=== PATIENT | female | born 1975 | race Caucasian/White ===

== ENCOUNTER 2017-09-27 15:55 | Emergency (ER) | payer MEDICAID, OTHER ==
[2017-09-27 15:57] VITALS: BP 174/102; PULSE 84; RESP 18; TEMP 98.4; O2SAT 99
--- NOTE | 2017-09-27 16:17 | PD ---
HPI Chief Complaint: Musculoskeletal Complaint Time Seen by Provider: 16:16 Travel History International Travel<30 days: No Contact w/Intl Traveler<30days: No Traveled to known affect area: No History of Present Illness HPI Patient thinks she dislocated her jaw about 45 minutes ago. She had a big yawn on followed by a snapping feeling of her left side and dislocation. Patient says that she has popped her TMJ in the past but has been able to put it back again and again on her own. This time it did not go back in. She has her mouth persistently open with the jaw deviated to the right side [facility] Past Medical History Narrative Medical List of her past medical, surgical, social and family history is reviewed from the nursing note. Diminished Hearing: No Immunizations Current: Yes ?: Not LMP: 09/18/17 Past Surgical History Other Surgery: Yes (BREAST AUGMENTATION) Social History Alcohol Use: No Tobacco Use: No Substance Use: No Allergies-Medications (Allergen,Severity, Reaction): Coded Allergies: No Known Allergies (Unverified , 01/24/16) Comments No known drug allergies. Reported Meds & Prescriptions Reported Meds & Active Scripts Active No Active Prescriptions or Reported Medications Narrative Medication List of her home medications reviewed from the nursing note. Review of Systems Except as stated in HPI: all other systems reviewed are Neg HENT: Positive: Other Physical Exam Narrative GENERAL: Awake, alert, moderate distress SKIN: Focused skin assessment warm/dry. HEAD: Atraumatic. Normocephalic. EYES: Pupils equal and round. No scleral icterus. No injection or drainage. ENT: No nasal bleeding or discharge. Mucous membranes pink and moist. Mouth is persistently open with the jaw deviated to the right. Deformities felt in the right TMJ NECK: Trachea midline. No JVD. CARDIOVASCULAR: Regular rate and rhythm. No murmur appreciated. RESPIRATORY: No accessory muscle use. Clear to auscultation. Breath sounds equal bilaterally. GASTROINTESTINAL: Abdomen soft, non-tender, nondistended. Hepatic and splenic margins not palpable. MUSCULOSKELETAL: No obvious deformities. No clubbing. No cyanosis. No edema. NEUROLOGICAL: Awake and alert. No obvious cranial nerve deficits. Motor grossly within normal limits. Normal speech. PSYCHIATRIC: Appropriate mood and affect; insight and judgment normal. Data Data Last Documented VS Orders Orders Mandible, Complete (Min 4vws) (09/27/17 ) Midazolam Inj (Versed Inj) (09/27/17 16:30) Iv Access Insert/Monitor (09/27/17 16:32) Midazolam Inj (Versed Inj) (09/27/17 17:08) Midazolam Inj (Versed Inj) (09/27/17 17:30) Mandible, Ltd (Less Than 4vws) (09/27/17 ) Ed Discharge Order (09/27/17 17:49) [facility] Medical Decision Making Medical Screen Exam Complete: Yes Emergency Medical Condition: Yes Medical Record Reviewed: Yes Differential Diagnosis Jaw dislocation, mandibular fracture Narrative Course 4:33 PM awaiting for the x-ray. If there are no fractures I'll try to relocate the jaw with some versed. 5:49 PM the jaw was relocated with versed. Please refer to my procedure note. She tolerated it well. I'll be discharging her home. Procedures Procedure Narrative Jaw dislocation relocation: Patient was given IV Versed and this was done under light sedation. Gentle pressure was applied on the mandible with both thumbs placed on posterior area. Inferior and posterior pressure was applied. After some constant from pressure the jaw snap back into the TMJ and I could feel it. Patient was able to close her mouth. She tolerated the procedure well. EKG Prior to Arrival: No Diagnosis Primary Impression: Jaw dislocation Qualified Codes: S03.00XA - Dislocation of jaw, unspecified side, initial encounter Referrals: Primary Care Physician Additional Instructions: Soft diet or liquid diet for the next 24 hours. Return to the ER if the condition worsens or any other new concerns. Med/Other Pt SpecificInfo: No Change to Meds Scripts No Active Prescriptions or Reported Meds Disposition: 01 DISCHARGE HOME Condition: Stable Manohar Alicia MD Sep 27, 2017 16:17
[2017-09-27] MEDS ORDERED: MIDAZOLAM HCL 2 MG/2 ML VIAL IV PUSH ONE ×2 (16:30→17:30)
--- NOTE | 2017-09-27 16:57 | RADRPT ---
EXAM DATE/TIME: 09/27/2017 16:29 [facility] COMPARISON: No previous studies available for comparison. INDICATIONS : Evaluate mandible for dislocation, denies injury MEDICAL HISTORY : None. SURGICAL HISTORY : None. ENCOUNTER: Initial ACUITY: 1 day PAIN SCORE: 5/10 LOCATION: Mandible FINDINGS: Frontal, lateral, and oblique views of the mandible were performed. No fracture is seen. The left ma ndibular condyle appears to be located anterior to the glenoid fossa. The right mandibular condyles w ell-seated within the glenoid fossa. Open bite malocclusion is noted. CONCLUSION: 1. Open bite malocclusion 2. Suspected left TMJ dislocation Danie Henriquez MD on September 27, 2017 at 16:49 Board Certified Radiologist. This report was verified electronically.
[2017-09-27 17:04] VITALS: BP 157/101; PULSE 86; RESP 18; O2SAT 98
[2017-09-27] MEDS ORDERED: MIDAZOLAM HCL 5 MG/ML VIAL (1 ML) ONE (17:08)
--- NOTE | 2017-09-27 17:42 | RADRPT ---
EXAM DATE/TIME: 09/27/2017 17:26 [facility] COMPARISON: MANDIBLE BILAT (MIN 4VWS), September 27, 2017, 16:29. INDICATIONS : Post reduction mandible MEDICAL HISTORY : None. SURGICAL HISTORY : None. ENCOUNTER: Subsequent ACUITY: 1 day PAIN SCORE: 0/10 LOCATION: Mandible FINDINGS: Examination of the mandible demonstrates no fracture or dislocation. A previously dislocated left orlin nt has been successfully reduced. There is a described malocclusion is no longer apparent. CONCLUSION: Satisfactory reduction of dislocated left TMJ Danie Henriquez MD on September 27, 2017 at 17:38 Board Certified Radiologist. This report was verified electronically.
== END 2017-09-27 18:39 | disposition home or self-care (01) ==
LOC: NEPE 15:55
DX: S03.02XA Dislocation of jaw, left side, initial encounter (principal); X58.XXXA Exposure to other specified factors, initial encounter
CPT/HCPCS: 21480; 70110; 99283; J2250; 70100

== ENCOUNTER 2017-12-04 08:24 | Emergency (ER) | payer MEDICAID ==
[~2017-12-04] VITALS: Ht 170.2 cm; Wt 63.5 kg
[2017-12-04 08:25] VITALS: BP 187/81; PULSE 83; RESP 16; TEMP 98.2; O2SAT 100
[2017-12-04 09:33] VITALS: BP 142/84; PULSE 64; RESP 16; O2SAT 98
[2017-12-04 10:30] LABS: BACTERIA, URINE OCC /hpf; BLOOD, URINE NEG (NEG); GLUCOSE,URINE NEG (NEG); KETONE, URINE NEG (NEG); NITRITE,URINE POS (NEG); RENAL EPITHELIAL CELLS <1 /hpf; SQUAMOUS EPITHELIAL CELL URINE 3 /hpf (0-5); URINE LEUKOCYTE ESTERASE SMALL (NEG)
[2017-12-04 10:31] LABS: URINE COLOR DARK-ORANGE (YELLW/STRAW)
[2017-12-04 10:34] LABS: BILIRUBIN, URINE NEG (NEG)
[2017-12-04] MEDS ORDERED: MACR100C2 PO (10:38)
--- NOTE | 2017-12-04 10:38 | PD ---
HPI Chief Complaint: Pain: Acute or Chronic Time Seen by Provider: 09:40 Travel History International Travel<30 days: No Contact w/Intl Traveler<30days: No Traveled to known affect area: No History of Present Illness HPI 42-year-old female states after yawning her jaw dislocated on the right side. She states she had this happen to her in the past. History is limited initially given jaw dislocation. PFSH Past Medical History Medical History: Denies Significant Hx Diminished Hearing: No Immunizations Current: Yes Influenza Vaccination: No ?: Not : 4 Para: 4 Tubal Ligation: Yes Past Surgical History Other Surgery: Yes (BREAST AUGMENTATION) Social History Alcohol Use: Yes (socially) Tobacco Use: No Substance Use: No Allergies-Medications (Allergen,Severity, Reaction): Coded Allergies: No Known Allergies (Unverified Adverse Reaction, Unknown, 12/04/17) Reported Meds & Prescriptions Reported Meds & Active Scripts Active Macrobid (Nitrofurantoin Monoh/Nitrofur Macro) 100 Mg Cap 100 Mg PO BID 5 Days Review of Systems ROS Limitations: Other: (Jaw dislocation) Except as stated in HPI: all other systems reviewed are Neg Physical Exam Narrative GENERAL: 42-year-old female with right-sided jaw dislocation SKIN: Focused skin assessment warm/dry. HEAD: Atraumatic. Normocephalic. EYES: Pupils equal and round. No scleral icterus. No injection or drainage. ENT: No nasal bleeding or discharge. Mucous membranes pink and moist. NECK: Trachea midline. No JVD. CARDIOVASCULAR: Regular rate and rhythm. RESPIRATORY: No accessory muscle use. no increased effort GASTROINTESTINAL: Abdomen soft, non-tender, nondistended. Hepatic and splenic margins not palpable. MUSCULOSKELETAL: No obvious deformities. NEUROLOGICAL: Awake and alert. No obvious cranial nerve deficits. Motor grossly within normal limits. Normal speech. PSYCHIATRIC: Appropriate mood and affect; insight and judgment normal. Data Data Last Documented VS Vital Signs Date Time Temp Pulse Resp B/P (MAP) Pulse Ox O2 Delivery O2 Flow Rate FiO2 12/04/17 09:33 64 16 142/84 (103) 98 Room Air 12/04/17 08:25 98.2 Orders Orders Urinalysis - C+S If Indicated (12/04/17 09:49) Urine Culture (12/04/17 10:00) Ed Discharge Order (12/04/17 10:38) Labs Laboratory Tests Test 12/04/17 10:00 Urine Color DARK-ORANGE Urine Turbidity HAZY Urine pH 8.0 Urine Specific [place] 1.016 Urine Protein TRACE mg/dL Urine Glucose (UA) NEG mg/dL Urine Ketones NEG mg/dL Urine Occult Blood NEG Urine Nitrite POS Urine Bilirubin NEG Urine Urobilinogen 4.0 MG/DL Urine Leukocyte Esterase SMALL Urine RBC 1 /hpf Urine WBC 17 /hpf Urine Squamous Epithelial Cells 3 /hpf Urine Renal Epithelial Cells <1 /hpf Urine Bacteria OCC /hpf Microscopic Urinalysis Comment CULTURE INDICATED MDM Medical Decision Making Medical Screen Exam Complete: Yes Emergency Medical Condition: Yes Medical Record Reviewed: Yes (Past history confirmed, prior visit with sedation for reduction) Interpretation(s) ua with uti Differential Diagnosis Jaw dislocation, fracture, UTI Narrative Course Patient's jaw was reduced with extraoral technique without difficulty and patient was happy with this. Then she states she has also been having concurrent urinary tract infection symptoms so we will check urinalysis and reevaluate. Patient with UTI. Patient still with jaw in place. Agrees to antibiotic. Patient denies any new complaints and states that they are feeling better. Patient happy with care, all questions answered. Patient knows that follow up is incumbent on them and to return to the emergency room immediately if new or worsening symptoms develop. Patient given strict return precautions, vitals reviewed and are normal, agrees to further workup as an outpatient. Procedures Procedure Narrative Jaw reduction: With extra oral technique patient's right sided jaw dislocation was reduced on one attempt without complication. Patient happy with result no sedation needed Diagnosis Primary Impression: Dislocation of jaw, right side, initial encounter Additional Impression: UTI (urinary tract infection) Qualified Codes: N39.0 - Urinary tract infection, site not specified Patient Instructions: General Instructions Additional Instructions: return as needed, follow with primary this week, tylenol as needed, limit opening your jaw with large movements Med/Other Pt SpecificInfo: Prescription(s) given Scripts Nitrofurantoin Monohydrate Macrocrystals (Macrobid) 100 Mg Cap 100 MG PO BID for Infection for 5 Days, #10 CAP 0 Refills Prov: Jessi Covarrubias MD 12/04/17 Disposition: 01 DISCHARGE HOME Condition: Stable Jessi Covarrubias MD Dec 04, 2017 10:38
== END 2017-12-04 11:03 | disposition home or self-care (01) ==
LOC: NEPE 08:24
DX: S03.01XA Dislocation of jaw, right side, initial encounter (principal); N39.0 Urinary tract infection, site not specified; X50.9XXA Other and unspecified overexertion or strenuous movements or postures, initial encounter
CPT/HCPCS: 21480; 81001; 87086

== ENCOUNTER 2017-12-26 18:39 | Emergency (ER) | payer SELFPAY ==
[~2017-12-26] VITALS: Ht 170.2 cm; Wt 65.0 kg
[~2017-12-26 18:39] MED LIST: MACR100C2 PO
[2017-12-26 19:31] VITALS: BP 159/98; PULSE 90; RESP 18; TEMP 98.4; O2SAT 97
[2017-12-26 20:12] LABS: BACTERIA, URINE MANY /hpf; BLOOD, URINE NEG (NEG); GLUCOSE,URINE NEG (NEG); KETONE, URINE TRACE mg/dL (NEG); MUCUS URINE FEW /lpf (OCC); NITRITE,URINE POS (NEG); PH, URINE 6.5 (5.0-8.5); SQUAMOUS EPITHELIAL CELL URINE 1 /hpf (0-5); URINE COLOR DARK-YELLOW (YELLW/STRAW); URINE LEUKOCYTE ESTERASE MOD (NEG)
[2017-12-26 20:14] LABS: BILIRUBIN, URINE NEG (NEG)
[2017-12-26] MEDS ORDERED: PHEN0.4T PO (21:27)
[2017-12-26] MEDS ORDERED: BACT800T5 PO (21:27)
--- NOTE | 2017-12-26 21:27 | PD ---
HPI Chief Complaint: Complaint Time Seen by Provider: 21:18 Travel History International Travel<30 days: No Contact w/Intl Traveler<30days: No Traveled to known affect area: No History of Present Illness HPI 42-year-old female here for evaluation of UTI. The patient reports urinary frequency and dysuria. No fevers or chills. No vomiting. No vaginal discharge or bleeding. She has mild suprapubic discomfort that is intermittent. PFSH Past Medical History Diminished Hearing: No Immunizations Current: Yes ?: Not LMP: "2 WKS AGO" : 4 Para: 4 Tubal Ligation: Yes Past Surgical History Other Surgery: Yes (BREAST AUGMENTATION) Social History Alcohol Use: Yes Tobacco Use: No Substance Use: No Allergies-Medications (Allergen,Severity, Reaction): Coded Allergies: No Known Allergies (Unverified Adverse Reaction, Unknown, 12/26/17) Reported Meds & Prescriptions Reported Meds & Active Scripts Active Macrobid (Nitrofurantoin Monoh/Nitrofur Macro) 100 Mg Cap 100 Mg PO BID 5 Days Review of Systems Except as stated in HPI: all other systems reviewed are Neg Physical Exam Narrative GENERAL: Well-developed, well-nourished, comfortable, no apparent distress. SKIN: Focused skin assessment warm/dry. No rash. HEAD: Atraumatic. Normocephalic. EYES: Pupils equal and round. No scleral icterus. No injection or drainage. ENT: Mucous membranes pink and moist. CARDIOVASCULAR: Regular rate and rhythm. RESPIRATORY: No accessory muscle use. Clear to auscultation. Breath sounds equal bilaterally. GASTROINTESTINAL: Abdomen soft, non-tender, nondistended. MUSCULOSKELETAL: No obvious deformities. No clubbing. No cyanosis. No edema. No CVA tenderness. NEUROLOGICAL: Awake and alert. No obvious cranial nerve deficits. Motor grossly within normal limits. Normal speech. PSYCHIATRIC: Appropriate mood and affect; insight and judgment normal. Data Data Last Documented VS Vital Signs Date Time Temp Pulse Resp B/P (MAP) Pulse Ox O2 Delivery O2 Flow Rate FiO2 12/26/17 19:31 98.4 90 18 159/98 (118) 97 Orders Orders Urinalysis - C+S If Indicated (12/26/17 19:35) Urine Culture (12/26/17 19:40) Sulfamet-Trimeth Ds 800-160 Mg (Bactrim (12/26/17 21:30) Phenazopyridine (Pyridium) (12/26/17 21:30) Labs Laboratory Tests Test 12/26/17 19:40 Urine Color DARK-YELLOW Urine Turbidity HAZY Urine pH 6.5 Urine Specific [place] 1.019 Urine Protein NEG mg/dL Urine Glucose (UA) NEG mg/dL Urine Ketones TRACE mg/dL Urine Occult Blood NEG Urine Nitrite POS Urine Bilirubin NEG Urine Urobilinogen 2.0 MG/DL Urine Leukocyte Esterase MOD Urine RBC 2 /hpf Urine WBC 23 /hpf Urine Squamous Epithelial Cells 1 /hpf Urine Bacteria MANY /hpf Urine Mucus FEW /lpf Microscopic Urinalysis Comment CULTURE INDICATED MDM Medical Decision Making Medical Screen Exam Complete: Yes Emergency Medical Condition: Yes Differential Diagnosis UTI, cystitis, pyelonephritis Narrative Course Vital signs reviewed. UA suggestive of UTI. The patient will be started on Bactrim. She is stable for discharge home with outpatient follow-up with a primary care physician this week. She was advised on when to return to the emergency department. She verbalizes understanding and agreement with plan. Diagnosis Primary Impression: UTI (urinary tract infection) Qualified Codes: N30.00 - Acute cystitis without hematuria Referrals: [facility] 3 days Primary Care Physician 3 days Additional Instructions: Follow-up with a primary care physician this week. Return to the emergency department for worsening symptoms or any other concerns. Scripts Phenazopyridine (Pyridium) 100 Mg Tab 100 MG PO Q8H Y for DYSURIA for 5 Days, #15 TAB 0 Refills Prov: Corky Cobos MD 12/26/17 Sulfamethoxazole-Trimethoprim (Bactrim DS) 800-160 Mg Tab 1 TAB PO BID for Infection, #14 TAB 0 Refills Prov: Corky Cobos MD 12/26/17 Disposition: 01 DISCHARGE HOME Condition: Stable Corky Cobos MD Dec 26, 2017 21:27
[2017-12-26] MEDS ORDERED: SULFAMETHOXAZOLE-TRIMETHOPRIM DS 800-160 MG TAB PO ONE (21:30)
[2017-12-26] MEDS ORDERED: PHENAZOPYRIDINE HCL 100 MG TAB PO ONE (21:30)
== END 2017-12-26 21:59 | disposition home or self-care (01) ==
LOC: NEPD 18:39
DX: N30.00 Acute cystitis without hematuria (principal); B96.20 Unspecified Escherichia coli [E. coli] as the cause of diseases classified elsewhere
CPT/HCPCS: 81001; 87077; 87086; 87186; 99283